=== PATIENT | male | born 1965 | race Caucasian/White ===

== ENCOUNTER → 2020-12-03 08:36 | Outpatient (CLI) | payer OTHER, SELFPAY ==
--- NOTE | ~2020-12-03 | CT_ITS ---
EXAMINATION: CT abdomen wo con DATE: 12/03/2020 08:55 INDICATION: Abdominal wall mass TECHNIQUE: Computed tomography (CT) of the abdomen was performed without intravenous contrast. Automa sole exposure control and iterative reconstruction technique were employed. Exam dose: 742.17 mGy-cm total exam DLP. COMPARISON: None. FINDINGS: There is minimal discoid scarring in the lower lung zones. No infiltrate or consolidation. Right lower lobe calcified pulmonary granuloma. Normal heart size. No pericardial or pleural effusion. Small sliding hiatal hernia. There is hepatic steatosis. No hepatic space-occupying mass lesion is evident. 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 No pancreatic mass lesion or calcification. The gallbladder is present. No bile duct or pancreatic duct dilatation. No pericholecystic fluid or fat s tranding. 1.3 cm probable left renal cyst. No other renal mass lesion is evident on this limited noncontrast ex amination. No ureteral calculus or hydroureteronephrosis is detected. Normal caliber of the abdominal aorta with atherosclerotic calcification. No abdominal aortic aneurys m. No intraperitoneal or retroperitoneal mass lesion or adenopathy or ascites. No bowel obstruction. There is a fat-containing umbilical hernia. There are at least several supraumbilical fat-containing ventral abdominal wall hernias, 2 adjacent s mall linear defect noted on series 2 image 47. There is herniation of the wall of the anterior aspect of the transverse colon through an additional small supraumbilical ventral wall defect. Degenerative spurring of the thoracic and to a minimal extent lumbar spine. No suspicious osteolytic or osteoblastic lesions are noted. IMPRESSION: Ventral abdominal wall hernias, containing fat, one containing a small portion of the an terior margin of the transverse colon, without strangulation or obstruction Hepatic steatosis Small sliding hiatal hernia Probable 1.3 cm left renal cyst Reviewed, dictated and finalized at [facility]. Reviewed, dictated and finalized at [facility]. IMPRESSION: Ventral abdominal wall hernias, containing fat, one containing a s mall portion of the anterior margin of the transverse colon, without strangulat ion or obstruction Hepatic steatosis Small sliding hiatal hernia Probable 1.3 cm left renal cyst
== END ==
PROVIDERS: Visit Provider Surgery
DX: R22.2 Localized swelling, mass and lump, trunk (principal); K76.0 Fatty (change of) liver, not elsewhere classified; K44.9 Diaphragmatic hernia without obstruction or gangrene; K43.9 Ventral hernia without obstruction or gangrene
CPT/HCPCS: 74150

== ENCOUNTER 2021-03-13 07:57 | Outpatient (CLI) | payer OTHER, SELFPAY ==
--- NOTE | 2021-03-13 08:00 | ECG_ITS ---
Measurements Intervals [place] Rate: 74 P: 3 [place]: 193 QRS: -30 QRSD: 96 T: 2 QT: 362 QTc: 403 Interpretive Statements SINUS RHYTHM VOLTAGE CRITERIA FOR LVH BORDERLINE R WAVE PROGRESSION, ANTERIOR LEADS BORDERLINE T WAVE ABNORMALITY- INFERIOR LEADS BORDERLINE ECG Electronically Signed On 03-13-2021 8:32:20 CDT by Kevin Tidwell D.O.
[2021-03-13 08:47] LABS: Anion Gap 15 mmol/L (8-16); Blood Urea Nitrogen 15 mg/dL (9-20); Carbon Dioxide 21 mmol/L (22-30); Chloride 103 mmol/L (98-107); Estimated Glomerular Filt Rate > 60; Glucose 133 mg/dL (65-110); Potassium 4.4 mmol/L (3.4-5.0); Sodium 139 mmol/L (137-145)
== END 2021-03-13 07:58 | disposition home or self-care (01) ==
LOC: ANHSURGERY 08:02
PROVIDERS: Anesthesiology; PCP Family Medicine; Visit Provider Surgery
DX: Z01.818 Encounter for other preprocedural examination (principal); E11.9 Type 2 diabetes mellitus without complications; K43.2 Incisional hernia without obstruction or gangrene; I10 Essential (primary) hypertension
CPT/HCPCS: 36415; 80048; 86850; 86900; 86901; 93005

== ENCOUNTER 2021-03-14 00:03 | Day surgery (SDC) | payer OTHER, SELFPAY ==
[2021-03-12 13:47] VITALS: BMI 32.5
[2021-03-14] VITALS (7 sets, daily range): BP systolic 113–141; BP diastolic 69–81; PULSE 79–89; RESP 14–20; TEMP 36.3; O2SAT 96–100
[2021-03-14] MEDS: ACETAMINOPHEN 500 MG TABLET 1000 MG PO (10:19)
[2021-03-14] MEDS: LACTATED RINGERS 1,000 ML 30 ML IV CONT ×2 (10:45→15:05)
[2021-03-14] MEDS: KETOROLAC 15 MG/ML VIAL (*BKC) IV PUSH (10:50)
[2021-03-14 11:04] LABS: Glucose Point of Care 110 mg/dl (65-105)
--- NOTE | 2021-03-14 11:30 | WPDANESEPPF ---
Anes - Initial Pre Proc Eval Procedure: Operation Date: 03/14/21 12:00 Proposed Procedures p Robotic Assisted Laparoscopic Incisional Hernia with Mesh - Nisa Turner MD Date/Time: 03/14/21 11:30 Surgeon: Nisa Turner MD Pre Op Diagnosis: incisional hernia Patient Data Age: 55 Gender: M Height: 1.75 m Weight: 101.8 kg Last Vital Signs Temp 97.4 F L 03/14/21 10:10 Pulse 79 03/14/21 10:10 Resp 20 03/14/21 10:10 BP 114/76 03/14/21 10:10 Pulse Ox 98 03/14/21 10:10 Allergies Allergy/AdvReac Type Severity Reaction Status Date / Time No Known Allergies Allergy Verified 03/12/21 13:45 Home Medications Medication Instructions Recorded Confirmed Type lisinopril 20 mg tablet 20 mg PO DAILY #30 tablet 10/02/20 03/14/21 Rx dulaglutide 0.75 mg/0.5 mL 0.75 mg SUBCUT WEEKLY #2 ml 10/25/20 03/14/21 Rx subcutaneous pen injector metformin 500 mg tablet,extended 500 mg PO QPM #120 tablet 12/03/20 03/14/21 Rx release 24 hr atorvastatin 20 mg PO HS 03/12/21 03/14/21 History empagliflozin [Jardiance] 25 mg PO DAILY 03/14/21 03/14/21 History Laboratory Tests 03/14/21 11:02 POC Capillary Glucose 110 mg/dl H mg/dl (65-105) Patient hx anesthesia problems: none Family hx anesthesia problems: none PMFSH Past Medical History Medical History HLD (hyperlipidemia) HTN (hypertension) Type 2 diabetes mellitus without complications Surgical History Surgical History History of splenectomy History of surgery on arm Family History Family History Mother Diabetes mellitus Social History Social History Smoking status: Never smoker Second hand tobacco smoke exposure: No Alcohol intake: never Substance use: never Substance use type: does not use Living arrangements: with family Additional occupation/education comments: Construction Gender identity (if verbalized by the patient): Male Anes - Eval Final PreProcedure Day of Procedure 03/14/21 11:30 Patient weight: obese Heart: regular rate and rhythm Lungs: clear to auscultation Airway: Mallampati scale class II Neurological: alert and oriented Last oral intake: >/= 8 hours ASA classification: III Emergent: no Anesthetic plan: proceed Anesthesia type and monitoring: general ETT and standard monitoring Informed Consent: The patient's anesthetic plan and its attendant risks and benefits were discussed with the patient/family/POA. Questions were solicited and answers provided to the satisfaction of the patient/family/POA.
--- NOTE | 2021-03-14 11:46 | PM.IMHP ---
H&P: HPI History of Present Illness Date/Time: 03/14/21 11:46 Pt is a 55 y/o M c known incisional hernia. Pt had imaging confirming multiple incisional hernia along a long midline scar. Pt is symptomatic dilan c straining, activity. Pt denies any obstructive sx. Chief Complaint: incisional hernia Review of Systems Review of Systems: All systems reviewed & are unremarkable except as noted in HPI and below PMFSH Past Medical History Medical History HLD (hyperlipidemia) HTN (hypertension) Type 2 diabetes mellitus without complications Surgical History Surgical History History of splenectomy History of surgery on arm Family History Family History Mother Diabetes mellitus Social History Social History Smoking status: Never smoker Second hand tobacco smoke exposure: No Alcohol intake: never Substance use: never Substance use type: does not use Living arrangements: with family Additional occupation/education comments: Construction Gender identity (if verbalized by the patient): Male Meds Home Medications and Allergies Home Medications Medication Instructions Recorded Confirmed Type lisinopril 20 mg tablet 20 mg PO DAILY #30 tablet 10/02/20 03/14/21 Rx dulaglutide 0.75 mg/0.5 mL 0.75 mg SUBCUT WEEKLY #2 ml 10/25/20 03/14/21 Rx subcutaneous pen injector metformin 500 mg tablet,extended 500 mg PO QPM #120 tablet 12/03/20 03/14/21 Rx release 24 hr atorvastatin 20 mg PO HS 03/12/21 03/14/21 History empagliflozin [Jardiance] 25 mg PO DAILY 03/14/21 03/14/21 History Allergies Allergy/AdvReac Type Severity Reaction Status Date / Time No Known Allergies Allergy Verified 03/12/21 13:45 Vital Signs Vital Signs - 24 hr 03/14/21 10:10 Temperature 36.3 C L Pulse Rate 79 Respiratory Rate 20 Blood Pressure 114/76 Pulse Oximetry 98 Exam Const: General: cooperative, comfortable and no acute distress Nutritional Appearance: obese Orientation/consciousness: patient oriented x3 Limitations: no limitations Chest: Chest palpation & inspection: normal inspection of the chest Resp: Effort & Inspection: normal respiratory effort Auscultation: clear to auscultation bilaterally Cardio: Rate: regular rate Rhythm: regular rhythm GI: Inspection: normal to inspection, non-distended and incision GI Palp: Yes Soft to palpation, No Tenderness to palpation present (GI) and No Guarding due to palpation present (GI) Other: soft, supraumbilical incisional hernia Assessment and Plan Assessment and plan (1) Incisional hernia: Code(s): K43.2 - Incisional hernia without obstruction or gangrene Status: Acute Assessment and Plan: will setup for robotic repair c mesh
--- NOTE | 2021-03-14 11:52 | WPDHPUPDATE1 ---
History and Physical Update Update Date/Time: 03/14/21 11:52 History and Physical has been reviewed, including an updated exam of the patient. There are NO changes in the patient's condition. Risks, benefits, and alternatives have been discussed and questions answered. Patient agrees to proceed with procedure.
[2021-03-14] MEDS: ceFAZolin 2 GM/D5W 50 ML 2 GM/50 ML BAG IVPB (11:59)
[2021-03-14] MEDS: BUPIVACAINE/EPINEPHRINE 0.5% 30 ML VIAL INFILTRATE (13:25)
--- NOTE | 2021-03-14 15:03 | W.PM.PROC2 ---
Procedure Note - Detailed Date of Procedure 03/14/21 Pre-op Diagnosis multiple incarcerated incisional hernias Post-op Diagnosis same Procedure Performed robotic assisted repair of multiple incarcerated incisional hernias with 15 x 10 cm Symbotec mesh, extensive lysis of adhesions for approximately 60 minutes Surgeon Nisa Turner MD Anesthesia general Indications 55 y/o M presenting c supraumbilical incisional hernias. Pt had previous ex lap and splenectomy for trauma Findings multiple incarcerated incisional hernias along previous midline incisions, 8 in total, largest on c incarcerated small intestine, extensive midline and LUQ adhesions Description of Procedure The patient was taken the operating room placed in the supine position. After adequate induction of general anesthesia, the patient was prepped and draped in normal sterile fashion. A time-out was then done to verify the patient's identity as well as the procedure being performed. I began by making a 5 mm incision in the left upper quadrant. Through this, a Veress needle was placed into the peritoneal cavity and CO2 gas was insufflated. After adequate pneumoperitoneum was achieved, a 5 mm trocar was placed through this incision. I then placed the laparoscope through this trocar site and under direct visualization I placed a 8 mm port in the left mid abdomen as well as an additional 8 mm port in the left lower abdomen. I then moved the camera to the lower port and noted extensive adhesions in the LUQ. Given this, I did a lysis of adhesions to make room for the 12 mm airport. Once space was achieved, I replaced the 5 mm port with a 12 mm airport. The robot was then docked to the 3 port sites. I then went to the robotic console. I began by doing an extensive lysis of adhesions. There was noted dense adhesion to the entire midline and LUQ. Upon taking down the midline adhesions, multiple hernia defects were encountered and reduced. Near the superior portion multiple small hernias x 4 were noted, all 1 cm or less. These were incarcerated c intraabdominal fat. Lower along the midline, there was four larger defects, one containing a loop of small intestine. All hernias were carefully reduced. The adhesiolysis took approximately 60 minutes. I then proceeded to close the all the hernia defects with 0 strata fix suture. Given the long length between the superior and inferior defects and the relative small size of the superior defects, the decision was made to only place mesh along the four lower and larger defects. I then placed a 15 x 10 cm symbotex mesh into the abdominal cavity. The Vicryl stitch was placed in the middle of the mesh and brought up centering the mesh over the defects. Once this was done, I used 2 0 V lock suture x 2 to circumferentially suture the mesh to the abdominal wall. Once the mesh was completely sutured in, I was happy with our tension-free repair. The mesh was noted to have good overlap of the inferior defects. At this point, the robot was undocked and all ports were removed. I then closed the 12 mm port site with an 0 Vicryl [id number] suture at the fascial level. All port sites were then closed with 4 O Monocryl subcuticular suture. The patient tolerated the procedure well, is extubated in the operating room postoperative, OB transferred to the recovery room in stable condition. Implants 15x10 cm Symbotex mesh Estimated Blood Loss 10 Drains No Packing No Pathology none sent Complications No immediate complications Condition stable Disposition PACU
[2021-03-14 15:59] LABS: Glucose Point of Care 141 mg/dl (65-105)
== END 2021-03-14 16:55 | disposition home or self-care (01) ==
PROVIDERS: PCP Family Medicine; Visit Provider Surgery
PROC: (CPT 49655; principal; 2021-03-14 12:00)
DX: K43.0 Incisional hernia with obstruction, without gangrene (principal); K66.0 Peritoneal adhesions (postprocedural) (postinfection); Z90.81 Acquired absence of spleen; I10 Essential (primary) hypertension; E78.5 Hyperlipidemia, unspecified; E11.9 Type 2 diabetes mellitus without complications; Z79.84 Long term (current) use of oral hypoglycemic drugs; E66.9 Obesity, unspecified; Z68.33 Body mass index [BMI] 33.0-33.9, adult
CPT/HCPCS: 49655; S2900; 36415; 80048; 82948; 86850; 86900; 86901; 93005; A9270; C1781; J0690; J1100; J1885; J2250; J2370; J2405; J2704; J2710; J3010; J7120

== ENCOUNTER 2021-08-30 17:24 | Emergency (ER) | payer OTHER, SELFPAY ==
--- NOTE | ~2021-08-30 | XR_ITS ---
EXAMINATION: XR knee LT min 4V DATE: 08/30/2021 19:06 INDICATION: Left knee pain TECHNIQUE: Four views of the left knee were obtained. COMPARISON: None. FINDINGS: Alignment is normal. No fracture or osteochondral lesion. There is mild tricompartmental os teoarthritis characterized by tiny marginal osteophytes. Small calcified loose bodies are noted in th e knee joint. No joint effusion/synovitis. Calcified atherosclerosis is noted. IMPRESSION: 1. No acute osseous abnormality. Reviewed, dictated and finalized at [facility]
[2021-08-30 17:31] VITALS: BP 161/92; PULSE 98; RESP 17; TEMP 36.1; O2SAT 99
--- NOTE | 2021-08-30 18:51 | ED.LOWEXIN ---
HPI - Extremity Injury (Lower) General Chief Complaint: Extremity Injury, Lower <Lexi Gatica PA-C - Last Filed: 08/30/21 19:39> Stated Complaint: Left Knee Injury <Lexi Gatica PA-C - Last Filed: 08/30/21 19:39> Time Seen by Provider: 08/30/21 18:39 <Lexi Gatica PA-C - Last Filed: 08/30/21 19:39> Source: patient <JAREN Sweet Last Filed: 08/30/21 19:39> Mode of arrival: wheelchair <Lexi Gatica PA-C - Last Filed: 08/30/21 19:39> Limitations: no limitations <Lexi Gatica PA-C - Last Filed: 08/30/21 19:39> History of Present Illness HPI Narrative: This is a 56-year-old male that presents to the emergency department for left knee injury sustained just prior to arrival. Reports he had jumped out of the bed of his truck. Reports when he landed he felt a pop in the left knee. Since he has had pain especially with weightbearing. He did take Advil this afternoon. Reports decreased range of motion due to pain. Denies numbness. <Lexi Gatica PA-C - Last Filed: 08/30/21 19:39> Related Data Allergies/Adverse Reactions: Allergies Allergy/AdvReac Type Severity Reaction Status Date / Time No Known Allergies Allergy Verified 08/30/21 17:34 <Lexi Gatica PA-C - Last Filed: 08/30/21 19:39> Review of Systems Review of Systems: CONSTITUTIONAL: Denies fever MUSCULOSKELETAL: Reports joint pain, and myalgia. NEUROLOGIC: Denies numbness, or weakness. <JAREN Sweet Last Filed: 08/30/21 19:39> All systems reviewed & are unremarkable except as noted in HPI and below <Lexi Gatica PA-C - Last Filed: 08/30/21 19:39> [facility] Past Medical History Medical History: Medical History HLD (hyperlipidemia) HTN (hypertension) Type 2 diabetes mellitus without complications <Lexi Gatica PA-C - Last Filed: 08/30/21 19:39> Surgical History Surgical History: Surgical History History of incisional hernia repair robotic assisted repair of multiple incarcerated incisional hernias with 15 x 10 cm Symbotec mesh, extensive lysis of adhesions for approximately 60 minutes History of splenectomy History of surgery on arm <Lexi Gatica PA-C - Last Filed: 08/30/21 19:39> Family History Family History: Family History Mother Diabetes mellitus <Lexi Gatica PA-C - Last Filed: 08/30/21 19:39> Social History Social History: Social History Smoking status: Never smoker Second hand tobacco smoke exposure: No Alcohol intake: never Substance use: never Substance use type: does not use Additional occupation/education comments: Construction Gender identity (if verbalized by the patient): Male <Lexi Gatica PA-C - Last Filed: 08/30/21 19:39> Exam Narrative: GENERAL: Well-appearing, well-nourished, and in no acute distress. HEAD: Normocephalic, atraumatic. EYES: EOMI. EXTREMITIES: Normal range of motion. No edema or obvious deformity. Normal DP pulses. Normal sensation SKIN: Warm, dry, no rash. NEURO: No focal deficits. Alert and oriented x3. PSYCH: Normal mood and affect <Lexi Gatica PA-C - Last Filed: 08/30/21 19:39> Course SOCK EXAMINER/PA Physician Supervision For this patient encounter, I reviewed the SOCK EXAMINER or PA documentation, treatment plan, and medical decision making. <Lio Londono MD - Last Filed: 08/31/21 00:02> Vital Signs Vital signs: Vital Signs Temperature 97.0 F L 08/30/21 17:31 Pulse Rate 98 08/30/21 17:31 Respiratory Rate 17 08/30/21 17:31 Blood Pressure 161/92 H 08/30/21 17:31 Pulse Oximetry 99 08/30/21 17:31 Temperature 97.0 F L 08/30/21 17:31 Pulse Rate 98 08/30/21 17:31 Respiratory Rate 17 08/30/21 17:31 Blood Pressure
== END 2021-08-30 19:56 | disposition home or self-care (01) ==
PROVIDERS: Emergency Provider Emergency Medicine; PCP Family Medicine
DX: S83.92XA Sprain of unspecified site of left knee, initial encounter (principal); E78.5 Hyperlipidemia, unspecified; I10 Essential (primary) hypertension; E11.9 Type 2 diabetes mellitus without complications; X50.9XXA Other and unspecified overexertion or strenuous movements or postures, initial encounter
CPT/HCPCS: 73564; 99283

== ENCOUNTER 2021-09-20 15:47 | Emergency (ER) | payer OTHER, SELFPAY ==
--- NOTE | ~2021-09-20 | XR_ITS ---
EXAMINATION: XR knee LT min 4V EXAM DATE: 09/20/2021 17:48 INDICATION: Left Knee Pain, Injury, Fall On Ice, [place] Pop. TECHNIQUE: Three projections of the left knee. Comparison is made to prior examination from 08/30/2021 . FINDINGS: Several small well-corticated ossifications along the anterolateral aspect of the knee bipin nt, possible joint bodies There are no acute fractures or dislocations identified. There is no subcu taneous gas. Mild scattered arteriosclerotic disease. No joint effusion. There are no radiopaque fo reign bodies. IMPRESSION: 1. XR knee LT min 4V exam without acute osseous findings. 2. Small ossifications, possible joint bodies. Reviewed, dictated and finalized at location [facility]
[2021-09-20 15:50] VITALS: BP 142/93; PULSE 100; RESP 16; TEMP 36.8; O2SAT 100
--- NOTE | 2021-09-20 17:48 | PC.NURSE ---
patient reports that he fell 3 weeks ago, presented here at that time, was dx with sprain to left knee. progressively getting better, did not f/u with orthopedic dr as recommended. states that he slipped today, did not fall, heard a pop and has been having increase pain when trying to straighten out left leg. pulses present. denies pain in left calf. at bedside
--- NOTE | 2021-09-20 19:21 | ED.LOWEXIN ---
HPI - Extremity Injury (Lower) General Chief Complaint: Extremity Injury, Lower Stated Complaint: left knee pain Time Seen by Provider: 09/20/21 17:27 Source: patient Mode of arrival: wheelchair Limitations: no limitations History of Present Illness HPI Narrative: This is a 56 year old male that presents to the ER for left knee injury sustained just prior to arrival. Reports he slipped on ice and felt a pop in the knee. Reports he has been unable to straighten the knee due to pain. Reports some swelling to the knee. Denies numbness. Related Data Allergies Allergy/AdvReac Type Severity Reaction Status Date / Time No Known Allergies Allergy Verified 08/30/21 17:34 Review of Systems Review of Systems: CONSTITUTIONAL: Denies fever MUSCULOSKELETAL: Reports joint pain, and myalgia. NEUROLOGIC: Denies numbness, or weakness. All systems reviewed & are unremarkable except as noted in HPI and below PMFSH Past Medical History Medical History HLD (hyperlipidemia) HTN (hypertension) Type 2 diabetes mellitus without complications Surgical History Surgical History History of incisional hernia repair robotic assisted repair of multiple incarcerated incisional hernias with 15 x 10 cm Symbotec mesh, extensive lysis of adhesions for approximately 60 minutes History of splenectomy History of surgery on arm Family History Family History Mother Diabetes mellitus Social History Social History Smoking status: Never smoker Second hand tobacco smoke exposure: No Alcohol intake: never Substance use: never Substance use type: does not use Additional occupation/education comments: Construction Gender identity (if verbalized by the patient): Male Exam Narrative: GENERAL: Well-appearing, well-nourished, and in no acute distress. HEAD: Normocephalic, atraumatic. EYES: EOMI. EXTREMITIES: Normal range of motion. No edema or obvious deformity. Normal DP pulses. Normal sensation SKIN: Warm, dry, no rash. NEURO: No focal deficits. Alert and oriented x3. PSYCH: Normal mood and affect Course Vital Signs Vital signs: Vital Signs Temperature 98.3 F 09/20/21 15:50 Pulse Rate 100 09/20/21 15:50 Respiratory Rate 16 09/20/21 15:50 Blood Pressure 142/93 H 09/20/21 15:50 Pulse Oximetry 100 09/20/21 15:50 Temperature 98.3 F 09/20/21 15:50 Pulse Rate 100 09/20/21 15:50 Respiratory Rate 16 09/20/21 15:50 Blood Pressure 142/93 H 09/20/21 15:50 Pulse Oximetry 100 09/20/21 15:50 MDM - Extremity Injury (Lower) MDM Narrative Medical decision making narrative: Patient presents to the emergency department for left knee pain after an injury today. Reports he slipped on the ice. He is neurovascularly intact. Left knee x-ray is without acute osseous abnormalities. Patient and family updated on case findings. Given Dread wrap and instructed to use crutches. Instructed to ice, elevate and take [id number] pain medication as needed. He is to follow-up with orthopedics. He was given warnings to return the ER Imaging Data Radiologist's impression: ITS Impressions Knee X-Ray 09/20/21 17:54 IMPRESSION: 1. XR knee LT min 4V exam without acute osseous findings. 2. Small ossifications, possible joint bodies. Critical Care Time Critical Care Time Critical Care Time: No Discharge Plan Discharge Clinical Impression: Left knee sprain Qualifiers: Encounter type: initial encounter Involved ligament of knee: unspecified ligament Qualified Code(s): S83.92XA - Sprain of unspecified site of left knee, initial encounter Patient Disposition: Home, Self-Care Condition: Stable Instructions: Knee Sprain (ED) Additional Instructions: Return to the emergency de
[2021-09-20 19:50] VITALS: BP 133/86; PULSE 92; RESP 20; TEMP 36.8; O2SAT 99
== END 2021-09-20 19:51 | disposition home or self-care (01) ==
PROVIDERS: Emergency Provider Emergency Medicine; PCP Family Medicine
DX: S83.92XA Sprain of unspecified site of left knee, initial encounter (principal); E78.5 Hyperlipidemia, unspecified; I10 Essential (primary) hypertension; E11.9 Type 2 diabetes mellitus without complications; Z90.81 Acquired absence of spleen; Z79.84 Long term (current) use of oral hypoglycemic drugs; Z79.899 Other long term (current) drug therapy; W00.0XXA Fall on same level due to ice and snow, initial encounter
CPT/HCPCS: 73564; 99283

== ENCOUNTER → 2021-11-26 07:01 | Outpatient (CLI) | payer OTHER, SELFPAY ==
--- NOTE | ~2021-11-26 | MR_ITS ---
EXAMINATION: MR knee LT wo con DATE: 11/26/2021 07:32 INDICATION: Left knee pain. TECHNIQUE: Magnetic resonance imaging (MRI) of the left knee was performed without intravenous contra st. Sequences included axial PD-weighted FS FSE, coronal PD-weighted FSE and PD-weighted FS FSE, sagi ttal PD-weighted FSE, and sagittal T2-weighted FS FSE. COMPARISON: Left knee radiographs 11/14/2021 FINDINGS: Medial compartment: There is a vertical tear of posterior horn of medial meniscus. There is cartilage surface irregularit y of tibial condyle and femoral condyle. Osteophytes are noted. Lateral compartment: Lateral meniscus is normal. There is cartilage surface irregularity of tibial condyle and femoral con dyle. Osteophytes are noted. Patellofemoral compartment: There is deep cartilage fissuring of patellar medial and lateral facets and median ridge. There is ca rtilage surface irregularity of trochlea. Ligaments and tendons: There is a complete tear of anterior cruciate ligament. Posterior fusion ligament is intact. There ar e changes of prior sprains of medial collateral ligament and fibular collateral ligament contrast wit h thickening and increased signal intensity proximally. There is mild patellar tendinopathy. Fluid: There is a small knee joint effusion. There is mild superficial infrapatellar bursitis. IMPRESSION: 1. Moderate chondrosis of patellofemoral compartment and mild chondrosis of medial and lateral compar tments. 2. Complete tear of anterior cruciate ligament. 3. Tear of medial meniscus. 4. Small knee joint effusion. Reviewed, dictated and finalized at location A. IMPRESSION: 1. Moderate chondrosis of patellofemoral compartment and mild chondrosis of med ial and lateral compartments. 2. Complete tear of anterior cruciate ligament. 3. Tear of medial meniscus. 4. Small knee joint effusion.
== END ==
PROVIDERS: PCP Family Medicine; Visit Provider Orthopaedic Surgery
DX: M25.462 Effusion, left knee (principal); S83.512A Sprain of anterior cruciate ligament of left knee, initial encounter; X58.XXXA Exposure to other specified factors, initial encounter; S83.242A Other tear of medial meniscus, current injury, left knee, initial encounter
CPT/HCPCS: 73721

== ENCOUNTER 2022-01-09 09:23 | Outpatient (CLI) | payer OTHER, SELFPAY ==
--- NOTE | 2022-01-09 09:35 | ECG_ITS ---
Measurements Intervals Cades Rate: 71 P: 9 RI: 188 QRS: -28 QRSD: 101 T: -1 QT: 367 QTc: 400 Interpretive Statements SINUS RHYTHM LEFT VENTRICULAR HYPERTROPHY BORDERLINE T WAVE ABNORMALITY- INFERIOR LEADS BORDERLINE ECG Electronically Signed On 01-09-2022 10:53:33 CDT by Kevin Tidwell D.O.
[2022-01-09 10:09] LABS: Anion Gap 12 mmol/L (8-16); Blood Urea Nitrogen 16 mg/dL (9-20); Calcium 9.1 mg/dL (8.4-10.2); Carbon Dioxide 24 mmol/L (22-30); Chloride 105 mmol/L (98-107); Estimated Glomerular Filt Rate > 60; Glucose 125 mg/dL (65-110); Potassium 4.3 mmol/L (3.4-5.0); Sodium 141 mmol/L (137-145)
== END 2022-01-09 09:24 | disposition home or self-care (01) ==
LOC: ANHSURGERY 09:27
PROVIDERS: Anesthesiology; PCP Family Medicine; Visit Provider Orthopaedic Surgery
DX: Z01.818 Encounter for other preprocedural examination (principal); I11.9 Hypertensive heart disease without heart failure; E78.5 Hyperlipidemia, unspecified; E11.9 Type 2 diabetes mellitus without complications
CPT/HCPCS: 36415; 80048; 93005

== ENCOUNTER 2022-01-15 00:18 | Day surgery (SDC) | payer OTHER, SELFPAY ==
[2022-01-07 13:51] VITALS: BMI 32.5
--- NOTE | 2022-01-07 14:09 | PC.NURSE ---
Report to the Outpatient Waiting Room, entrance under the green pavilion located off [facility], at time _1200_ on date _[id number]_. OR Time: _2pm_. - You and your visitor will be asked a series of questions to screen for COVID 19 for your protection. - Only one visitor is allowed at this time. - The patient visitor is requested to leave or wait in car when not with patient. - A mask is required within the hospital. Patients may have clear liquids (water, carbonated beverages, clear teas, apple juice) until 3 hours prior to surgery with a maximum of 20 ounces. - No food from midnight until time of surgery Take the following medications with a SIP of water the morning of surgery: None Medications to discontinue per physician None Date to take last dose Please no make-up, nail mongolian, hairspray, perfume, deodorant, or body powder the day of surgery. No jewelry (including any body piercings) or valuables the day of surgery, leave them at home. Please take a shower or bath the night before, or the morning of, surgery with an antibacterial soap. Wear comfortable, loose fitting clothing. Children are encouraged to wear pajamas. - Jewelry must be removed prior to entering the operating room. Rings and piercings that are not removed may be cut off. - The hospital will not accept responsibility for valuables. - Please leave all valuables, including medications, at home the day of surgery. If you are going home after surgery, a licensed local hazmat driver must drive you home. - NO public transportation without another adult. - We recommend that an adult stay with you for 24 hours following discharge. - We also recommend that you do not drive, make important decision, drink alcoholic beverages, or take any drugs that were not prescribed by your health care provider for at least 24 hours after your discharge time. Follow any additional instructions given to you from your surgeon. If you or anyone in your household have experienced Covid symptoms in the past week, please notify your surgeon or the nurse liaison at the phone number below for possible testing. Telephone instructions given to ___Patient and asked if any additional questions and then verbalized understanding. Patient advised to call surgeon office or pre surgery nurse liaison [phone] if any additional questions.
[2022-01-15] VITALS (7 sets, daily range): BP systolic 122–151; BP diastolic 60–88; PULSE 74–83; RESP 15–19; TEMP 36.2; O2SAT 92–98
--- NOTE | 2022-01-15 07:11 | WPDHPUPDATE1 ---
History and Physical Update Update Date/Time: 01/15/22 07:11 History and Physical has been reviewed, including an updated exam of the patient. There are NO changes in the patient's condition. Risks, benefits, and alternatives have been discussed and questions answered. Patient agrees to proceed with procedure.
--- NOTE | 2022-01-15 12:57 | P.PNAN_ITS ---
Anes - Initial Pre Proc Eval Procedure: Operation Date: 01/15/22 14:00 Proposed Procedures p Left Knee Arthroscopy - Norm Still MD Date/Time: 01/15/22 12:57 Surgeon: Norm Still MD Pre Op Diagnosis: Lt Knee ACL Tear, Left Medial Meniscus Tear Patient Data Age: 56 Gender: M Height: 1.75 m Weight: 100 kg Allergies Allergy/AdvReac Type Severity Reaction Status Date / Time No Known Allergies Allergy Verified 01/08/22 12:05 Home Medications Medication Instructions Recorded Confirmed Type lisinopril 20 mg tablet 20 mg PO DAILY #30 tabs 09/06/21 01/07/22 Rx atorvastatin 20 mg tablet 20 mg PO HS #90 tabs 10/21/21 01/07/22 Rx empagliflozin 25 mg tablet 25 mg PO DAILY #90 tabs 10/29/21 01/07/22 Rx (Jardiance) dulaglutide 1.5 mg/0.5 mL 1.5 mg (0.5 mL) subcut WEEKLY #2 mL 11/25/21 01/07/22 Rx subcutaneous pen injector metformin 500 mg tablet,extended 2,000 mg PO QPM 01/07/22 01/07/22 History release 24 hr Patient hx anesthesia problems: none Family hx anesthesia problems: none Results Review: All pre-operative results and documents have been reviewed as part of the pre- operative evaluation. [facility] Past Medical History Medical History Dietary counseling and surveillance (04/05/19) Essential hypertension HLD (hyperlipidemia) HLD (hyperlipidemia) HTN (hypertension) Skin lesion Type 2 diabetes mellitus without complication, without long-term current use of insulin Type 2 diabetes mellitus without complications Surgical History Surgical History History of incisional hernia repair robotic assisted repair of multiple incarcerated incisional hernias with 15 x 10 cm Symbotec mesh, extensive lysis of adhesions for approximately 60 minutes History of splenectomy History of surgery on arm Family History Family History Mother Diabetes mellitus Hypertension Other HLD (hyperlipidemia) Heart disease Social History Social History Smoking status: Never smoker Second hand tobacco smoke exposure: No Alcohol intake: never Substance use: never Substance use type: does not use Living arrangements: with family Additional occupation/education comments: Construction Gender identity (if verbalized by the patient): Male Spiritual care concerns: No Anes - Eval Final PreProcedure Day of Procedure 01/15/22 12:57 Patient weight: obese Heart: regular rate and rhythm Lungs: clear to auscultation Airway: Mallampati scale class II Neurological: alert and oriented Last oral intake: >/= 8 hours ASA classification: III Emergent: no Anesthetic plan: proceed Anesthesia type and monitoring: general LMA and standard monitoring Results Review: All pre-operative results and documents have been reviewed as part of the pre- operative evaluation. Informed Consent: The patient's anesthetic plan and its attendant risks and benefits were discussed with the patient/family/POA. Questions were solicited and answers provided to the satisfaction of the patient/family/POA.
[2022-01-15] MEDS: CELECOXIB 200 MG CAPSULE PO (13:05)
[2022-01-15] MEDS: LACTATED RINGERS 1,000 ML 30 ML IV CONT (13:27)
[2022-01-15] MEDS: ACETAMINOPHEN 500 MG TABLET 1000 MG PO (13:29)
--- NOTE | 2022-01-15 13:44 | PM.CNOR ---
Assessment and Plan Assessment and plan (1) Medial meniscus tear: Qualifiers: Tear current or old: current Encounter type: subsequent encounter Meniscus tear of knee type: unspecified type Laterality: left Qualified Code(s): S83.242D - Other tear of medial meniscus, current injury, left knee, subsequent encounter Code(s): S83.249A - Other tear of medial meniscus, current injury, unspecified knee, initial encounter Status: Acute Plan PAOLA IS HERE FOR LEFT KNEE ARTHROSCOPY FOR LEFT MEDIAL MENISCUS TEAR AND CHONROMALACIA. DISCUSSED NONOPERATIVE AND OPERATIVE TREATMENT OPTIONS WITH THE PATIENT. THE PATIENT'S QUESTIONS WERE ANSWERED. THE PATIENT DESIRES OPERATIVE TREATMENT. DISCUSSED LEFT KNEE SCOPE. . RISKS OF SURGERY INCLUDING BUT NOT LIMITED TO NEUROVASCULAR DAMAGE, WOUND COMPLICATIONS, BLOOD CLOT, PULMONARY EMBOLUS, STROKE, AK, ANESTHETIC RISKS UP TO AND INCLUDING WERE REVIEWED. CONTINUED PAIN AND POSSIBLE DYSFUNCTION WERE EXPLAINED. NO GUARANTEES WERE OFFERED. THE PATIENT UNDERSTANDS AND WISHES TO PROCEED. Additional Plan PLAN FOR LEFT KNEE SCOPE History of Present Illness HPI Consult date: 01/15/22 Chief complaint: Lt Knee ACL Tear, Left Medial Meniscus Tear Narrative: JULIETTE IS HERE FOR HIS LEFT KNEE PAIN. HE SUSTAINED A LEFT KNEE MEDIAL MENISCUS TEAR. HE CONTINUES TO BE IN PAIN. HE IS SCHEDULED FOR LEFT KNEE SCOPE. Review of Systems Review of Systems: All systems reviewed & are unremarkable except as noted in HPI and below Constitutional: Constitutional: Reports no additional constitutional complaints Eyes: Eyes: Reports no additional eye complaints ENT: Reports system reviewed and no additional complaints, except as documented Cardiovascular: Cardiovascular: Reports no additional cardiovascular complaints Respiratory: Respiratory: Reports no additional respiratory complaints Gastrointestinal: Gastrointestinal: Reports no additional gastrointestinal complaints Genitourinary: Genitourinary: Reports no additional male genitourinary complaints Musculoskeletal: Musculoskeletal: Reports no additional musculoskeletal complaints Integumentary/Breasts: Skin/Breast: Reports system reviewed and no additional complaints, except as docu Neurologic: Reports system reviewed and no additional complaints, except as documented Psychiatric: Psychiatric: Reports no additional psychiatric complaints Endocrine: Endocrine: Reports no additional endocrine complaints Allergic/Immunologic: Allergic/Immunologic: Reports no additional allergic/immunologic complaints PMFSH Past Medical History Medical History Dietary counseling and surveillance (04/05/19) Essential hypertension HLD (hyperlipidemia) HLD (hyperlipidemia) HTN (hypertension) Skin lesion Type 2 diabetes mellitus without complication, without long-term current use of insulin Type 2 diabetes mellitus without complications Surgical History Surgical History History of incisional hernia repair robotic assisted repair of multiple incarcerated incisional hernias with 15 x 10 cm Symbotec mesh, extensive lysis of adhesions for approximately 60 minutes History of splenectomy History of surgery on arm Family History Family History Mother Diabetes mellitus Hypertension Other HLD (hyperlipidemia) Heart disease Social History Social History Smoking status: Never smoker Second hand tobacco smoke exposure: No Alcohol intake: never Substance use: never Substance use type: does not use Living arrangements: with family Additional occupation/education comments: Construction Gender identity (if verbalized by the patient): Male Spiritual care concerns: No Meds Home Medications a
[2022-01-15 13:51] LABS: Glucose Point of Care 112 mg/dl (65-105)
[2022-01-15] MEDS: ceFAZolin 2 GM/D5W 50 ML 2 GM/50 ML BAG IVPB (14:04)
--- NOTE | 2022-01-15 14:05 | SUR.PREOP ---
ALL CHARTING UNDER SINA ROMAN WAS ACTUALLY DOCUMENTED BY LIDA BOLANOS.
[2022-01-15] MEDS: BUPIVACAINE HCL 0.5% PF 30 ML VIAL INFILTRATE (14:34)
--- NOTE | 2022-01-15 15:52 | W.PM.PROC2 ---
Procedure Note - Detailed Date of Procedure 01/15/22 Pre-op Diagnosis Lt Knee ACL Tear, Left Medial Meniscus Tear Post-op Diagnosis Other (LEFT MEDIAL AND LATERAL MENISCUS TEAR) Procedure Performed LEFT KNEE SCOPE Surgeon Norm Still MD Anesthesia General Description of Procedure PATIENT WAS TAKEN TO THE OR. THE LEFT LEG WAS PREPPED AND DRAPED STERILE. TROCARS WERE PLACED IN THE USUAL FASHION. CAMERA WAS INTRODUCED. THERE WAS CHONDROMALACIA TO THE PATELLA FEMORAL JOINT. THERE WAS A LOT OF SYNOVITIS IN ALL COMPARTMENTS. THE MEDIAL COMPARTMENT SHOWED CHONDROMALACIA TO THE MEDIAL FEMORAL CONDYLE. A SHAVER WAS USED TO PREFORM A CHONDROPLASTY. THERE WAS A LARGE COMPLEX MEDIAL MENISCUS TEAR. THE TEAR WAS RESECTED WITH A BITER AND A SHAVER DOWN TO A SMOOTH BASE. THE ACL WAS INTACT. THE LATERAL MENISCUS WAS TORN AT THE MID SECTION. THE TEAR WAS RESECTED. THE LATERAL COMPARTMENT HAD MINIMAL CHONDROMALACIA AT THE LATERAL PLATEAU. CHONDROPLASTY WAS PREFORMED. A SYNOVECTOMY WAS PREFORMED WELL. THE PATELLO FEMORAL JOINT UNDERWENT CHONDROPLASTY. 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 SYNOVECTOMY WAS PREFORMED IN THE SUPERIOR MEDIAL COMPARTMENT. THE WOUNDS WERE APPROXIMATED WITH 4.0 NYLON. STERILE DRESSING WAS APPLIED. PATIENT WAS EXTUBATED. Estimated Blood Loss -10.0 Complications No immediate complications Condition Stable Disposition PACU
[2022-01-15 16:09] LABS: Glucose Point of Care 142 mg/dl (65-105)
[2022-01-15] MEDS: oxyCODONE HCL (*CRX) 5 MG TAB IR PO (16:41)
== END 2022-01-15 17:11 | disposition home or self-care (01) ==
PROVIDERS: PCP Family Medicine; Visit Provider Orthopaedic Surgery
PROC: (CPT 29870; principal; 2022-01-15 14:00)
DX: S83.232A Complex tear of medial meniscus, current injury, left knee, initial encounter (principal); S83.282A Other tear of lateral meniscus, current injury, left knee, initial encounter; X50.0XXA Overexertion from strenuous movement or load, initial encounter; M22.42 Chondromalacia patellae, left knee; M65.862 Other synovitis and tenosynovitis, left lower leg; E11.9 Type 2 diabetes mellitus without complications; I10 Essential (primary) hypertension; E78.5 Hyperlipidemia, unspecified; Z79.84 Long term (current) use of oral hypoglycemic drugs; Z79.4 Long term (current) use of insulin; E66.9 Obesity, unspecified; Z68.33 Body mass index [BMI] 33.0-33.9, adult
CPT/HCPCS: 29880; 36415; 80048; 82948; 93005; A9270; J0690; J1100; J2250; J2405; J2704; J3010; J7120

== ENCOUNTER 2022-05-16 18:56 | Emergency (ER) | payer OTHER, SELFPAY ==
[2022-05-16 19:04] VITALS: BP 139/81; PULSE 78; RESP 18; TEMP 36.3; O2SAT 100
--- NOTE | 2022-05-16 19:17 | ED.EYEPROB ---
HPI - Eye Problem General Chief complaint: Eye Problems Stated complaint: Eyes are red and burning Time Seen by Provider: 05/16/22 19:17 Source: patient Mode of arrival: ambulatory Limitations: no limitations History of Present Illness HPI Narrative: 56-year-old male presented for complaint of bilateral eye redness and gritty, itchy sensation with clear drainage. Symptoms started in right eye about 3 days ago. Using pink eye drops and visine, stating it evans. Denies vision changes, photophobia, headache; denies purulent drainage or crust. Endorses babysitting grandchildren who used his hanky and they were not feeling well. chief complaint: eye pain Related Data Allergies Allergy/AdvReac Type Severity Reaction Status Date / Time No Known Allergies Allergy Verified 05/16/22 19:09 Review of Systems Review of Systems: CONSTITUTIONAL: Denies body aches, fever, chills EYES:Endorses redness clear drainage ENT: Denies rhinorrhea, congestion, sore throat, or otalgia. CARDIOVASCULAR: Denies chest pain, palpitations RESPIRATORY: Denies cough or dyspnea. SKIN: Denies rash, itching, or wounds. MUSCULOSKELETAL: Denies back pain, joint pain, or myalgia. NEUROLOGIC: Denies headache, numbness, tingling, or weakness. All systems reviewed & are unremarkable except as noted in HPI and below PMFSH Past Medical History Medical History Dietary counseling and surveillance (04/05/19) Essential hypertension HLD (hyperlipidemia) HLD (hyperlipidemia) HTN (hypertension) Skin lesion Type 2 diabetes mellitus without complication, without long-term current use of insulin Type 2 diabetes mellitus without complications Surgical History Surgical History History of incisional hernia repair robotic assisted repair of multiple incarcerated incisional hernias with 15 x 10 cm Symbotec mesh, extensive lysis of adhesions for approximately 60 minutes History of splenectomy History of surgery on arm Family History Family History Mother Diabetes mellitus Hypertension Other HLD (hyperlipidemia) Heart disease Social History Social History Smoking status: Never smoker Second hand tobacco smoke exposure: No Alcohol intake: never Substance use: never Substance use type: does not use Additional occupation/education comments: Construction Gender identity (if verbalized by the patient): Male Spiritual care concerns: No Comments At time of signature, I have reviewed and agree with nursing past medical, surgical, social and family history unless otherwise noted. Please see nursing chart for further information. There is no relevant family history pertinent to the presenting complaint Exam Narrative: GENERAL: Well-appearing HEAD: Normocephalic, atraumatic. EYES: bilateral conjunctival injection, clear drainage; no eye lid swelling. EOMI. Lid eversion showed no FB. ENT: Mucous membranes pink and moist. No rhinorrhea. TMs normal bilaterally. Throat normal. Uvula midline. CHEST: Clear to auscultation. HEART: Regular rate and rhythm. ABDOMEN: Soft, nontender, nondistended SKIN: Warm, dry, no rash. Normal skin turgor. NEURO: No focal deficits. Alert and oriented x3 Course Course Emergency Course: Patient is aware of diagnosis, understands and agrees to treatment plan. Anticipatory guidance given. Patient agrees to follow-up as directed and is aware of reasons to seek care at the emergency department. Portions of this record may have been created with voice recognition software Level of Care: Express Care Visit Vital Signs Vital signs: Vital Signs Temperature 97.3 F L 05/16/22 19:04 Pulse Rate 78 05/16/22 19:04 Respiratory Rate 18 05/16/22 19:04 Blood Pressure 139/81 05/16/22
== END 2022-05-16 19:30 | disposition home or self-care (01) ==
PROVIDERS: Emergency Provider Nurse Practitioner Family; PCP Family Medicine
DX: H10.9 Unspecified conjunctivitis (principal); I10 Essential (primary) hypertension; E78.5 Hyperlipidemia, unspecified; E11.9 Type 2 diabetes mellitus without complications; Z79.84 Long term (current) use of oral hypoglycemic drugs
CPT/HCPCS: 99213; G0463